=== PATIENT | female | born 1945 | race Caucasian/White ===

== ENCOUNTER → 2017-04-28 | Outpatient (CLI) | payer OTHER, MEDICARE | END | disposition home or self-care (01) | LOC: EKG 13:00 | DX: I05.1 Rheumatic mitral insufficiency (principal); I07.1 Rheumatic tricuspid insufficiency; I27.20 Pulmonary hypertension, unspecified; R94.31 Abnormal electrocardiogram [ECG] [EKG] | CPT/HCPCS: 93306 ==

== ENCOUNTER 2017-07-19 13:19 | Inpatient (IN) | payer OTHER, MEDICARE ==
[~2017-07-19] VITALS: Ht 175.3 cm; Wt 156.0 kg
[2017-07-19 14:56] LABS: HEMATOCRIT 44.6 % (36.0-46.0); HEMOGLOBIN 14.5 G/DL (11.9-15.5); MCH 27.3 PG (29.0-34.0); MCHC 32.5 G/DL (30.0-36.0); MCV 83.8 FL (83-99); PLATELET COUNT 252 K/uL (156-360); RBC DIS.WIDTH-CV 15.9 % (11.8-14.6); RBC DIS.WIDTH-SD 48.6 % (39-53); RED BLOOD COUNT 5.32 M/uL (3.80-5.20); WHITE BLOOD COUNT 9.7 K/uL (4.1-10.2)
[2017-07-19 15:03] LABS: CHLORIDE 97 mEq/L (99-109); POTASSIUM 4.1 mEq/L (3.7-5.4); SODIUM 137 mEq/L (136-147)
[2017-07-19 15:09] LABS: CREATININE 1.1 mg/dL (0.6-1.3); GFR ESTIMATE (CALCULATED) 52 mL/min/
[2017-07-19 15:10] LABS: UREA NITROGEN (BUN) 22 mg/dL (9-23)
[2017-07-19 15:33] LABS: GLUCOSE 433 mg/dL (70-99)
[2017-07-19 19:34] LABS: APPEARANCE CLOUDY ((CLEAR)); BILIRUBIN NEGATIVE; BLOOD NEGATIVE; COLOR YELLOW ((YELLOW)); GLUCOSE (STRIP) >=500; KETONES NEGATIVE; LEUKOCYTES LARGE; NITRITE NEGATIVE; PROTEIN (STRIP) NEGATIVE; SPECIFIC GRAVITY 1.022 (1.000-1.030); UROBILINOGEN 0.2 MG/DL (0.2-1.0)
[2017-07-19 19:49] LABS: EPITHELIAL CELLS 2+ /HPF; MUCUS NONE SEEN /LPF; RED BLOOD CELLS 0-5 /HPF (0-5); WHITE BLOOD CELLS TNTC /HPF (0-5)
[2017-07-19 19:50] LABS: BACTERIA 1+ /HPF; UCUL ADDED? YES
[2017-07-19] MEDS ORDERED: ROBITUSSIN100 MG/5 M PO (21:34)
[2017-07-19] MEDS ORDERED: MYSOLINE50 MG PO (21:34)
[2017-07-19] MEDS ORDERED: POTASSIUM CITR10 MEQ PO (21:35)
[2017-07-19] MEDS ORDERED: GLUCOPHAGE1000 MG PO (21:35)
[2017-07-19] MEDS ORDERED: B-121000 MC2 PO (21:35)
[2017-07-19] MEDS ORDERED: VITAMIN D35000 UNIT PO (21:36)
[2017-07-19] MEDS ORDERED: METOPROLOL SUCC25 MG PO (21:36)
[2017-07-19] MEDS ORDERED: DIFLUCAN150 MG PO (21:37)
[2017-07-19] MEDS ORDERED: LASIX40 MG PO (21:37)
[2017-07-19] MEDS ORDERED: PROVIGIL200 MG PO (21:38)
[2017-07-19] MEDS ORDERED: HYDROCHLOROTHIA50 MG PO (21:38)
[2017-07-19] MEDS ORDERED: PROTONIX40 MG PO (21:38)
[2017-07-19] MEDS ORDERED: SINGULAIR10 MG PO (21:38)
[2017-07-19] MEDS ORDERED: VESICARE10 MG PO (21:39)
[2017-07-19] MEDS ORDERED: CYMBALTA60 MG PO (21:39)
[2017-07-19] MEDS ORDERED: LEVEMIR100 UNIT/2 SC (21:40)
[2017-07-19] MEDS ORDERED: VENTOLIN HFA18 GM IH (21:40)
[2017-07-19] MEDS ORDERED: ALLEGRA ALLERG180 MG PO (21:40)
[2017-07-19] MEDS ORDERED: ASCORBIC ACID500 M3 PO (21:41)
[2017-07-19 23:26] VITALS: BP 162/72
[2017-07-20] VITALS (8 sets, daily range): BP systolic 145–187; BP diastolic 63–82
[2017-07-20 06:25] LABS: HEMATOCRIT 40.2 % (36.0-46.0); HEMOGLOBIN 12.7 G/DL (11.9-15.5); MCH 26.1 PG (29.0-34.0); MCHC 31.6 G/DL (30.0-36.0); MCV 82.7 FL (83-99); PLATELET COUNT 224 K/uL (156-360); RBC DIS.WIDTH-CV 15.7 % (11.8-14.6); RBC DIS.WIDTH-SD 47.8 % (39-53); RED BLOOD COUNT 4.86 M/uL (3.80-5.20); WHITE BLOOD COUNT 7.3 K/uL (4.1-10.2)
[2017-07-20 06:36] LABS: CHLORIDE 99 MEQ/L (99-109); CREATININE 0.8 MG/DL (0.6-1.3); GFR ESTIMATE (CALCULATED) > 59 mL/min/; GLUCOSE 294 mg/dL (70-99); POTASSIUM 3.8 MEQ/L (3.7-5.4); SODIUM 136 MEQ/L (136-147); UREA NITROGEN (BUN) 19 mg/dL (9-23)
[2017-07-20 07:00] LABS: HEMOGLOBIN A1c (GLYCOHEMOGLOB) 10.1 % HGB (Below 5.7)
[2017-07-21 04:53] VITALS: BP 152/65
[2017-07-21 08:21] VITALS: BP 150/65
[2017-07-21 11:30] LABS: BASOPHIL (%) 0.5 % (0-1); EOSINOPHIL (%) 5.1 % (0-5); EOSINOPHIL COUNT 0.4 K/uL (0-0.3); HEMATOCRIT 42.5 % (36.0-46.0); HEMOGLOBIN 13.6 G/DL (11.9-15.5); IMMATURE GRANULOCYTE (%) 0.5 % (0.0-0.7); LYMPHOCYTE (%) 17.7 % (15-42); LYMPHOCYTE COUNT 1.3 K/uL (1.0-2.8); MCH 26.3 PG (29.0-34.0); MCV 82.2 FL (83-99); MONOCYTE COUNT 0.5 K/uL (0-0.8); NEUTROPHIL (%) 70.2 % (45-76); NEUTROPHIL COUNT 5.3 K/uL (1.8-6.4); PLATELET COUNT 232 K/uL (156-360); RBC DIS.WIDTH-CV 15.6 % (11.8-14.6); RBC DIS.WIDTH-SD 46.5 % (39-53); RED BLOOD COUNT 5.17 M/uL (3.80-5.20); WHITE BLOOD COUNT 7.5 K/uL (4.1-10.2)
[2017-07-21 11:59] LABS: CHLORIDE 96 MEQ/L (99-109); CREATININE 0.7 MG/DL (0.6-1.3); GFR ESTIMATE (CALCULATED) > 59 mL/min/; GLUCOSE 237 mg/dL (70-99); POTASSIUM 3.2 MEQ/L (3.7-5.4); SODIUM 134 MEQ/L (136-147); UREA NITROGEN (BUN) 18 mg/dL (9-23)
[2017-07-21 12:07] VITALS: BP 137/75
[2017-07-21 15:59] VITALS: BP 117/69
[2017-07-21 20:06] VITALS: BP 139/62
[2017-07-22 00:13] VITALS: BP 121/66
[2017-07-22 05:28] LABS: BASOPHIL (%) 0.7 % (0-1); BASOPHIL COUNT 0.1 K/uL (0-0.1); EOSINOPHIL (%) 5.1 % (0-5); EOSINOPHIL COUNT 0.4 K/uL (0-0.3); HEMATOCRIT 44.7 % (36.0-46.0); HEMOGLOBIN 14.2 G/DL (11.9-15.5); IMMATURE GRANULOCYTE (%) 0.5 % (0.0-0.7); LYMPHOCYTE (%) 27.1 % (15-42); LYMPHOCYTE COUNT 2.1 K/uL (1.0-2.8); MCH 26.4 PG (29.0-34.0); MCHC 31.8 G/DL (30.0-36.0); MCV 83.2 FL (83-99); MONOCYTE (%) 7.3 % (3-12); MONOCYTE COUNT 0.6 K/uL (0-0.8); NEUTROPHIL (%) 59.3 % (45-76); NEUTROPHIL COUNT 4.5 K/uL (1.8-6.4); PLATELET COUNT 252 K/uL (156-360); RBC DIS.WIDTH-CV 15.9 % (11.8-14.6); RBC DIS.WIDTH-SD 47.6 % (39-53); RED BLOOD COUNT 5.37 M/uL (3.80-5.20); WHITE BLOOD COUNT 7.6 K/uL (4.1-10.2)
[2017-07-22 05:55] LABS: CHLORIDE 92 MEQ/L (99-109); CREATININE 0.9 MG/DL (0.6-1.3); GFR ESTIMATE (CALCULATED) > 59 mL/min/; SODIUM 137 MEQ/L (136-147); UREA NITROGEN (BUN) 16 mg/dL (9-23)
[2017-07-22 05:56] LABS: GLUCOSE 102 mg/dL (70-99)
[2017-07-22 08:45] VITALS: BP 129/67
[2017-07-22] MEDS ORDERED: AMLODIPINE BESYL5 MG PO (11:23)
[2017-07-22] MEDS ORDERED: BACTRIM,SEPT1 TABLET PO (11:23)
[2017-07-22] MEDS ORDERED: MITRAZOL 2% CRE45 GM TP (11:23)
[2017-07-22] MEDS ORDERED: LOPRESSOR25 MG PO (11:23)
[2017-07-22 11:25] VITALS: BP 127/60
== END 2017-07-22 18:33 | disposition home health service (06) | DRG 603 ==
LOC: EME 13:19 → 3EAST 20:38 → EDOF 20:38 → ENRESERV 20:44 → CANRESERV 20:44 → ENRESERV 20:55 → 3EAST 22:08
PROVIDERS: Hospitalist; Internal Medicine; Physician Assistant Medical; Student in an Organized Health Care Education/Training Program
DX: L03.116 Cellulitis of left lower limb (principal); L89.890 Pressure ulcer of other site, unstageable; E11.65 Type 2 diabetes mellitus with hyperglycemia; E66.01 Morbid (severe) obesity due to excess calories; Z99.3 Dependence on wheelchair; E78.5 Hyperlipidemia, unspecified; E87.6 Hypokalemia; N39.0 Urinary tract infection, site not specified; I11.0 Hypertensive heart disease with heart failure; I50.32 Chronic diastolic (congestive) heart failure; Z68.43 Body mass index [BMI] 50.0-59.9, adult; I89.0 Lymphedema, not elsewhere classified; L03.115 Cellulitis of right lower limb; L89.620 Pressure ulcer of left heel, unstageable; R32 Unspecified urinary incontinence; Z86.73 Personal history of transient ischemic attack (TIA), and cerebral infarction without residual deficits; L89.891 Pressure ulcer of other site, stage 1; S89.92XA Unspecified injury of left lower leg, initial encounter; S89.91XA Unspecified injury of right lower leg, initial encounter; I87.2 Venous insufficiency (chronic) (peripheral); J45.909 Unspecified asthma, uncomplicated; M10.9 Gout, unspecified
CPT/HCPCS: 80048; 80202; 81003; 82010; 82948; 83036; 83735; 83880; 85025; 85027; 87040; 87077; 87086; 87186; 93970; 94799; 99281; 99285; A6260; J0360; J0696; J1644; J1815; J3370; J3480